=== PATIENT | male | born 1990 | race Caucasian/White ===

== ENCOUNTER 2019-04-30 09:30 | Inpatient (IN) ==
--- NOTE | 2019-04-30 10:37 | Internal Med History&Physical ---
Medical - H&P: [facility] Patient information: Note initiated : 04/30/19 at 10:34 am Service Date, if different from initiated Date: [] Patient: Jim Camejo 28 y/o M admitted on 04/30/19 for Detox. Chief Complaint: [] History of present illness: Mr. Camejo is a 28 year old M Patient sent in by Dr. Liliana elliott for detox of opioid/benzodiazepine/alcohol. He has been dealing with drug and alcohol use since the time he was 15. And has been on many benzodiazepines and opioids over that time. Medical - H&P: H Medical history: Medical History (Last Reviewed 02/09/19 @ 12:13 by KLARISSA Cazares) Cellulitis (Chronic) Low testosterone (Chronic) Chronic fatigue (Chronic) Eczema (Chronic) Poor sleep (Chronic) Allergies (Chronic) Irritable bowel (Chronic) SOB (shortness of breath) (Chronic) Stomach ulcer (Chronic) Depression (Chronic) Anxiety (Chronic) Indigestion (Chronic) Headache (Chronic) Functional abdominal pain syndrome (Chronic) Asthma (Chronic) Sinusitis, acute (Chronic) Toothache (Chronic) BMI 27.0-27.9,adult (Chronic) Chronic pain (Chronic) Abnormal liver function tests (Chronic) ADD (attention deficit disorder) (Chronic) PTSD (post-traumatic stress disorder) (Chronic) Past Surgical History (Last Reviewed 02/09/19 @ 12:13 by KLARISSA Cazares) History of dental surgery (Chronic ~2017) History of appendectomy (Chronic ~2001) History of hernia surgery (Chronic ~1994) Family History (Last Updated 04/18/19 @ 16:04 by Louise Reyes LPN) Grandfather Alcoholism Family/Other Alcoholism Other No pertinent family history Social History (Last Reviewed 04/30/19 @ 09:11 by Louise Reyes LPN) Patient denies tobacco use lives at home with spouse Medical - H&P: Meds Home Medications Medication Instructions Recorded Confirmed Type Dexlansoprazole [Dexilant] 60 mg PO DAILY 10/28/14 04/30/19 History fluticasone furoate 200 1 inh INHALATION QAM each 02/06/19 04/30/19 History mcg-vilanterol 25 mcg/dose inhalation powder loratadine 10 mg tablet 10 mg PO PRN tab 02/06/19 04/30/19 History albuterol sulfate 90 mcg/actuation 2 puff INHALATION .Q4-6H PRN #18 g 02/09/19 04/30/19 Rx aerosol inhaler Ondansetron [Zofran ODT] 4 mg SL Q4-6HP PRN #20 tab 04/15/19 04/30/19 Rx Potassium Chloride [Kdur] 20 meq PO QAMCC #5 tab 04/15/19 04/30/19 Rx oxycodone 10 mg tablet 10 mg PO BID PRN #1 tab 04/23/19 04/30/19 Rx clonidine HCl 0.1 mg tablet See Rx Instructions .ROUTE 04/24/19 04/30/19 Rx .COMPLEX #7 tab dicyclomine 10 mg capsule See Rx Instructions .ROUTE 04/26/19 04/30/19 Rx .COMPLEX #20 capsule Allergies Allergy/AdvReac Type Severity Reaction Status Date / Time ketorolac [From Toradol] Allergy Severe Unknown Verified 04/30/19 09:40 morphine Allergy Severe Unknown Verified 04/30/19 09:40 cat dander Allergy Unknown Unknown Verified 04/30/19 09:40 dog dander Allergy Unknown Unknown Verified 04/30/19 09:40 hydromorphone Allergy Unknown Unknown Verified 04/30/19 09:40 mint Allergy Unknown Unknown Verified 04/30/19 09:40 tromethamine Allergy Unknown Unknown Verified 04/30/19 09:40 Seasonal Allergy Unknown Unknown Uncoded 02/09/19 10:39 Medical - H&P: Exam - Constitutional Exam: General: Alert, Awake, No acute Distress Eyes/N/T: EOMI, PERRL, Head/Neck: neck supple, normocephalic atraumatic CV: RRR, No murmurs, normal s1/s2 Pulm: Clear b/l, no wheezing/rhonchi/rales Abd: soft, nontender, +BS x4 Ext: no clubbing/cyanosis/edema Neuro: Alert, no focal deficits, moves all extremities, CN 2-12 grossly intact, symmetrical strength b/l upper/lower, sensations intact b/l upper/lower Skin: warm/dry Medical - H&P: A/P - Narrative A/P Narrative: A: *Inpt Detox for opioid/benzodiazepine/alcohol: *h/o asthma: *GERD: * P: -Detox per Dr. Ford -cont home IH's prn -home ppi -ppx: ambulate tid
[2019-04-30] MEDS ORDERED: SENNOSIDES 1 TABLET PO PRN (10:38)
[2019-04-30] MEDS ORDERED: POTASSIUM CHLORIDE 40 MEQ in DEXTROSE 5% IN WATER 500 ML IV PRN (10:38)
[2019-04-30] MEDS ORDERED: ONDANSETRON 4 MG/2 ML VIAL IV PRN (10:38)
[2019-04-30] MEDS ORDERED: MAGNESIUM SULFATE 2 GM/50 ML BAG IV PRN (10:38)
[2019-04-30] MEDS ORDERED: IPRATROPIUM/ALBUTEROL 3 ML AMPUL.NEB NEB PRN (10:38)
[2019-04-30] MEDS ORDERED: POLYETHYLENE GLYCOL 3350 17 GM PACKET PO PRN (10:38)
[2019-04-30] MEDS ORDERED: ACETAMINOPHEN 325 MG TABLET PO PRN (10:38)
[2019-04-30] MEDS ORDERED: POTASSIUM CHLORIDE 20 MEQ TABLET PO PRN ×2 (10:38)
[2019-04-30] MEDS ORDERED: PHENobarbital 32.4 MG TABLET PO SCH (12:10)
[2019-04-30] MEDS: PHENobarbital 32.4 MG TABLET PO SCH ×2 (12:47→15:03)
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
[2019-04-30] MEDS ORDERED: 0.9 % SODIUM CHLORIDE 10 ML SYRINGE IV SCH (14:00)
[2019-04-30] MEDS ORDERED: THIAMINE 100 MG TABLET PO SCH (15:00)
[2019-04-30] MEDS ORDERED: HALOPERIDOL 5 MG TABLET PO ONE (16:05)
[2019-04-30] MEDS ORDERED: DICYCLOMINE 20 MG TABLET PO SCH (17:00)
[2019-04-30] MEDS ORDERED: cloNIDine HCL 0.1 MG TABLET PO PRN (21:00)
[2019-04-30] MEDS ORDERED: DOCUSATE SODIUM 100 MG CAPSULE PO SCH (21:00)
[2019-04-30] MEDS ORDERED: VITAMIN B COMPLEX 1 CAPSULE PO SCH (21:00)
[2019-05-01] MEDS ORDERED: PHENobarbital 32.4 MG TABLET PO SCH ×2 (06:00)
[2019-05-01] MEDS ORDERED: PANTOPRAZOLE 40 MG TABLET PO SCH (07:30)
[2019-05-01] MEDS ORDERED: Fluticasone/Vilanterol [Breo Ellipta 200-25 Mcg Inhaler] INH SCH (09:00)
[2019-05-02] MEDS ORDERED: PHENobarbital 32.4 MG TABLET PO SCH (12:00)
== END 2019-04-30 17:00 | disposition left against medical advice (07) | DRG 894 ==
LOC: MEDSUR 09:52
PROVIDERS: ADMIT Internal Medicine; ATTEND Internal Medicine